=== PATIENT | male | born 1985 | race Caucasian/White ===

== ENCOUNTER 2022-06-24 21:40 | Emergency (ER) | payer MEDICAID ==
[2022-06-24] MEDS ORDERED: Albuterol/Ipratropium 3.0-0.5 MG/3 ML Neb Soln NEB ONE (22:19)
[2022-06-24] MEDS ORDERED: Codeine/guaiFENesin 10-100 MG/5 ML Syrup 5 ML Cup PO ONE (22:19)
== END 2022-06-25 00:51 | disposition home or self-care (01) ==
LOC: JP.ED 21:40
DX: J40 Bronchitis, not specified as acute or chronic (principal); F32.A Depression, unspecified; Z20.822 Contact with and (suspected) exposure to COVID-19; Z79.899 Other long term (current) drug therapy; Z88.8 Allergy status to other drugs, medicaments and biological substances
CPT/HCPCS: 36415; 71046; 80048; 83605; 84145; 85025; 86140; 87635; 94640; 99285; A9270; J7620; U0002